=== PATIENT | female | born 1955 | race Caucasian/White ===

== ENCOUNTER → 2022-09-13 09:26 | Outpatient (BNVA) | payer MEDICARE, SELFPAY | PROVIDERS: PCP Preventive Medicine Occupational Medicine; Visit Provider Nurse Practitioner Family | DX: Z13.6 Encounter for screening for cardiovascular disorders (principal); F17.200 Nicotine dependence, unspecified, uncomplicated; Z13.29 Encounter for screening for other suspected endocrine disorder; Z12.11 Encounter for screening for malignant neoplasm of colon; Z12.39 Encounter for other screening for malignant neoplasm of breast; Z13.820 Encounter for screening for osteoporosis; Z23 Encounter for immunization; Z12.2 Encounter for screening for malignant neoplasm of respiratory organs; Z00.00 Encounter for general adult medical examination without abnormal findings | CPT/HCPCS: 80053; 80061; 84443; 85025 ==

== ENCOUNTER → 2022-09-23 09:32 | Outpatient (BNVA) | payer MEDICARE, SELFPAY | PROVIDERS: PCP Preventive Medicine Occupational Medicine; Visit Provider Surgery | DX: Z12.11 Encounter for screening for malignant neoplasm of colon (principal) | CPT/HCPCS: 99024 ==

== ENCOUNTER 2022-10-07 10:15 | Outpatient (CLI) | payer MEDICARE, SELFPAY ==
--- NOTE | 2022-10-07 14:30 | XR_ITS ---
WS: [id number] SCREENING DEXA SCAN [employer] CLINICAL INFORMATION: Z13.820 - Encounter for screening for osteoporosis COMPARISON: None. FINDINGS: The L1-L4 bone mineral density measures 1.042 g/cm2. This corresponds to a T score score of -1.2 and Z score of 0.0. Left femoral neck bone mineral density measures 0.924 g/cm2. This corresponds to a T score of -0.7 an d Z score of 0.3. Right femoral neck bone mineral density measures 0.872 g/cm2. This corresponds to a T score -1.1of an d Z score of -0.1. Mean femoral neck bone mineral density measures 0.898 g/cm2. This corresponds to a T score of -0.9 an d Z score of 0.1. XR/XR DEXA axial skeleton* [id number] IMPRESSION: Osteopenia lumbar spine. Normal bone mineralization femoral necks approaching o steopenia. Patient's FRAX calculated 10 year probability for major osteoporotic fracture i s 12.4 % and osteoporotic hip fracture is 3.5%.
== END 2022-10-07 10:16 | disposition home or self-care (01) ==
LOC: RAD 10:15
PROVIDERS: PCP Nurse Practitioner Family; Visit Provider Nurse Practitioner Family
DX: Z13.820 Encounter for screening for osteoporosis (principal)
CPT/HCPCS: 77080

== ENCOUNTER 2022-10-07 10:15 | Outpatient (CLI) | payer MEDICARE, SELFPAY ==
--- NOTE | 2022-10-07 11:02 | MM_ITS ---
WS: [id number] Bilateral screening 3D tomosynthesis digital mammogram, 10/07/2022 Clinical Data: SCREEN Comparison: None. Findings: The breast parenchymal pattern shows glandular tissue. No spiculated masses or clustered calcificatio ns are seen. There are no secondary signs of carcinoma. MM/[place] [id number] Impression: 1. Negative bilateral mammogram with no prior exam for review.. 2. Recommend annual screening mammograms. BIRADS: 1-Negative FOLLOW UP: 1 Year Follow-up The CAD apple checker was used.
== END 2022-10-07 10:16 | disposition home or self-care (01) ==
LOC: RAD 10:15
PROVIDERS: PCP Nurse Practitioner Family; Visit Provider Nurse Practitioner Family
DX: Z12.31 Encounter for screening mammogram for malignant neoplasm of breast (principal); Z13.820 Encounter for screening for osteoporosis
CPT/HCPCS: 77063; 77067; 77080

== ENCOUNTER 2022-10-20 12:38 | Outpatient (CLI) | payer MEDICARE, SELFPAY ==
--- NOTE | 2022-10-20 12:45 | CT_ITS ---
WS: [id number] LDCT LUNG CANCER SCREENING HISTORY: Lung screening. TECHNIQUE: Axial imaging performed from the apices to 1 cm below the costophrenic angles. Coronal and sagittal reformats are submitted with axial MIP series. All CT scans at [facility] use at least one of these dose optimization techniques: automated exposure control; mA and/or kV adjustment per patient size (includes targeted exams where dose is matched to clinical indication); or iterativ e reconstruction. DLP: 67.00 mGy.cm DIvol: Mean CTDIvol: 1.50 (mGy) COMPARISON: None available. Diagnostic quality: Satisfactory Lung Nodules: Solid nodule with central lucency measures 9 mm RIGHT lower lobe. Margins are very slig htly irregular. There is an additional 4 mm nodule at the LEFT lung base. No additional mass or pneum onia. Lungs: Chronic emphysema with hyperexpansion. Heart: Normal size heart. No pericardial effusion. Other findings: Mild atherosclerosis aorta. No mediastinal or hilar adenopathy. Mild mid thoracic spo ndylosis. CT/CT lung screening [id number] IMPRESSION: LUNG-RADS: 4A-Probably Suspicious FOLLOW UP: 3 Month LDCT OTHER FINDINGS (S MODIFIER): None. PET/CT imaging may be of value also to evaluate the 9 mm RIGHT lower lobe nodul e.
== END 2022-10-20 12:39 | disposition home or self-care (01) ==
LOC: RAD 12:40
PROVIDERS: PCP Nurse Practitioner Family; Visit Provider Nurse Practitioner Family
DX: Z12.2 Encounter for screening for malignant neoplasm of respiratory organs (principal)
CPT/HCPCS: 71271

== ENCOUNTER 2022-10-22 07:49 | Day surgery (SDC) | payer MEDICARE, SELFPAY ==
[2022-10-20 08:57] VITALS: BMI 28.6
[2022-10-22 08:06] VITALS: BP 163/101; PULSE 67; RESP 18; TEMP 36.1; O2SAT 94
[2022-10-22] MEDS: sodium chloride 0.9% 1,000 ML 30 ML IV (08:08)
--- NOTE | 2022-10-22 09:10 | ANES.PREANE2 ---
Pre-Anesthetic Assessment Height/Weight: Height 1.65 m Weight 78.018 kg Temp Pulse Resp BP Pulse Ox O2 Del Method 97 F L 67 18 163/101 94 10/22/22 08:06 10/22/22 08:06 10/22/22 08:06 10/22/22 08:06 10/22/22 08:06 10/22/22 08:06 Preop Diagnosis: screening Operation Date: 10/22/22 09:30 Proposed Procedures p Colonoscopy 98465,Z12.11(Not Applicable) - Blair Guerrero DO Familial anesthetic complications: none Was Beta Lacey taken within 24 hours: N/A Was Clonidine taken within 24 hours: N/A Last intake: Intake Last Liquid Date 10/21/22 Last Liquid Time 22:00 Last Solid Date 10/20/22 Last Solid Time 18:00 Last Intake: 22:00 Social Tobacco and No alcohol 1ppd pack(s) per day 60 pack years Exam alert, oriented x 3, clear to auscultation bilaterally and regular rate & rhythm Airway Submandibular: within normal limits Cervical ROM: within normal limits Mallampati: Class I Dentition: false Pulmonary Chronic Obstructive Pulmonary Disease and Cough CV/HEM None reported None reported Hepatic None reported GI None reported Metabolic None reported Musc/skel None reported Neuropsych None reported Anesthetic Plan ASA status: 2 Anesthesia: MAC Risk of > 500 ml blood loss (7ml/kg in children): No Medications/Allergies Home Medications Medication Instructions Recorded Confirmed Last Taken Type atorvastatin 10 mg tablet 10 mg PO DAILY #30 tabs 09/28/22 10/20/22 10/21/22 Rx hydrocortisone 2.5 % topical cream 1 applic IA QID 10 days #30 grams 10/22/22 Unknown Rx with perineal applicator (Proctosol HC) Allergies Allergy/AdvReac Type Severity Reaction Status Date / Time No Known Allergies Allergy Unverified 10/20/22 08:54 Current Medications Generic Name Dose Route Start Last Admin Trade Name Freq PRN Reason Stop Dose Admin Sodium Chloride 1,000 mls @ 30 mls/hr 10/22/22 08:15 10/22/22 08:08 Sodium Chloride 0.9% IV 10/23/22 08:14 30 mls/hr .Q24H GLEN Administration PFSH Anesthesia Medical History (Updated 10/22/22 @ 09:40 by Blair Guerrero DO) No pertinent past medical history Surgical History (Updated 10/22/22 @ 09:40 by Blair Guerrero DO) Hx of appendectomy Social History Smoking and tobacco status: current every day smoker Second hand smoke exposure: No Smoking risk assessment/counseling performed?: No Alcohol intake: never Desire information about alcohol rehabilitation?: No Counseling given: No Desire information about substance/drug rehabilitation?: No Counseling given: No Adopted: No Caregiver/support person: No Lives independently: Yes Household members: spouse Housing: House Marital status: Number of children: 4 Highest education level completed: GED or Equivalent service: No Current occupational status: retired Data Anesthesia Cardiac Studies: No Data to Display
--- NOTE | 2022-10-22 09:40 | PM.HP ---
Providers/Chief Complaint Primary Care Provider: ILDEFONSO Roland Chief Complaint: encounter for screening History of Present Illness Lola Matta is a 67 year old female here for her first screening colonoscopy. She denies any family history of colon cancer. Denies abdominal pain, nausea, emesis, diarrhea, constipation, medic easier and/or melena. Review of Systems General: Reports: 10 or more systems reviewed and unremarkable except in HPI and below Medications/Allergies Home Medications Medication Instructions Recorded Confirmed Last Taken Type atorvastatin 10 mg tablet 10 mg PO DAILY #30 tabs 09/28/22 10/20/22 10/21/22 Rx Allergies Allergy/AdvReac Type Severity Reaction Status Date / Time No Known Allergies Allergy Unverified 10/20/22 08:54 PFSH Acute PFSH: Medical History (Updated 10/22/22 @ 09:40 by Blair Guerrero DO) No pertinent past medical history Surgical History (Updated 10/22/22 @ 09:40 by Blair Guerrero DO) Hx of appendectomy Social History Smoking and tobacco status: current every day smoker Second hand smoke exposure: No Smoking risk assessment/counseling performed?: No Alcohol intake: never Desire information about alcohol rehabilitation?: No Counseling given: No Desire information about substance/drug rehabilitation?: No Counseling given: No Adopted: No Caregiver/support person: No Lives independently: Yes Household members: spouse Housing: House Marital status: Number of children: 4 Highest education level completed: GED or Equivalent service: No Current occupational status: retired Vitals/I&O/Wt Last Vital Signs Temp 97 F L 10/22/22 08:06 Pulse 67 10/22/22 08:06 Resp 18 10/22/22 08:06 BP 163/101 10/22/22 08:06 Pulse Ox 94 10/22/22 08:06 O2 Del Method 10/22/22 08:06 Physical Exam Narrative: General : Patient is well developed , no acute distress, oriented x3 Head : Normal cephalic, a-traumatic. Ears : Pinnae and external canal are normal. Hearing is normal. Eyes : PERRLA, Sclera and injection are normal. No conjunctival discharge. Nose : Mucous membranes are without erythema. Throat : buccal mucosa is normal, gums are without significant recession or hypertrophy. Lungs : Equal chest rise bilaterally, no use of accessory muscles, trachea is midline. Cor : Rate and rhythm are normal. Abdomen : Soft, ND, NT, no g/r/m Extremities : No edema, no cyanosis or clubbing, dorsalis pedis pulses are present bilaterally, non-tender to palpation of calves. Upper extremities are normal bilaterally. Back : non-tender to palpation, no CVA tenderness. Neuro : CN II - XII intact, Upper and lower extremities have equal and full strength A&P Assessment and plan (1) Colon cancer screening: Plan Colonoscopy The risks and benefits of the procedure, including bleeding, infection, intestinal perforation requiring surgery, missed lesion were explained to the patient. The patient is understanding of the risks and wishes to proceed. Attestations Medical Necessity Statement*: Home Coding Level of Care Code Acute Code for Chg Fwd Diagnoses Colon cancer screening Z12.11
[2022-10-22 10:24] VITALS: BP 164/80; PULSE 62; RESP 16; TEMP 36.1; O2SAT 99
[2022-10-22 10:35] VITALS: BP 159/108; PULSE 56; RESP 16; O2SAT 91
[2022-10-22 10:45] VITALS: BP 166/89; PULSE 57; RESP 16; O2SAT 100
--- NOTE | 2022-10-22 12:55 | ANE.PACU2 ---
Inpatient post-anesthesia follow up: Airway intact: Yes Vital signs: Temperature 97 F Pulse Rate 57 Respiratory Rate 16 Blood Pressure 166/89 Pulse Oximetry 100 Oxygen Delivery Me thod Room Air Oxygen Flow Rate 3 Fraction of Inspir ed Oxygen Hydration adequate: Yes Nausea and vomiting: No Pain level: 2 Mental status: Baseline
== END 2022-10-22 11:00 | disposition home or self-care (01) ==
PROVIDERS: PCP Nurse Practitioner Family; Visit Provider Surgery
PROC: 0DJD8ZZ Inspection of Lower Intestinal Tract, Via Natural or Artificial Opening Endoscopic (ICD-10-PCS; CPT 45378; principal; 2022-10-22 09:30)
DX: Z12.11 Encounter for screening for malignant neoplasm of colon (principal); F17.210 Nicotine dependence, cigarettes, uncomplicated; K64.8 Other hemorrhoids; D12.6 Benign neoplasm of colon, unspecified; J44.9 Chronic obstructive pulmonary disease, unspecified
CPT/HCPCS: 45385; 88305; J2704; J7030

== ENCOUNTER → 2022-11-10 16:23 | Outpatient (BNVA) | payer MEDICARE, SELFPAY | PROVIDERS: PCP Nurse Practitioner Family; Visit Provider Surgery | DX: Z09 Encounter for follow-up examination after completed treatment for conditions other than malignant neoplasm (principal); D12.6 Benign neoplasm of colon, unspecified | CPT/HCPCS: 99212 ==

== ENCOUNTER 2022-11-13 07:40 | Outpatient (CLI) | payer MEDICARE, SELFPAY ==
--- NOTE | 2022-11-13 | PETR_ITS ---
PROCEDURE INFORMATION: Exam: PET/CT Skull Base to Mid-thigh Exam date and time: 11/13/2022 8:55 AM Age: 67 years old Clinical indication: Abnormal findings of lung field LABS AND CLINICAL REPORTS: Glucose: 106 mg/dl Treatment strategy for malignancy (PET staging): Initial Staging (PI) TECHNIQUE: Imaging protocol: Following at least four-hour fasting and following the injection of F-18-FDG, low dose CT images were obtained. Then, PET images were obtained. Attenuation corrected images were constructed using the CT scan. Fused images of PET and CT were reviewed. The standardized uptake values (SUV) reported below are maximum values within a region of interest, expressed in gm/ml. Exam includes orbital meatal line to mid-thigh. Radiopharmaceutical: 11.22 mCi F-18 FDG (Fluorodeoxyglucose), IV. Time of imaging post radiopharmaceutical administration: 1 hour Injection site: Left antecubital COMPARISON: CT lung screening [id number] 10/20/2022 1:03 PM, CT head and CT cervical spine 03/02/2015 FINDINGS: Brain: Visualized brain has normal physiologic uptake. Pharynx: There is mild asymmetric left palatine tonsillar uptake without evidence of a discrete lesion, SUV max 4.6. Larynx: No abnormal uptake. Lungs, pleura and trachea: No abnormal uptake. A calcified granuloma in the medial right lower lobe on series 3, image 72 is present.Mild dependent streaky density in the lungs is consistent with atelectasis. A solid noncalcified right lower lobe nodule measuring 9-10 mm on series 3, image 57 is not radiotracer avid, SUV max 1.5. A non radiotracer avid noncalcified 4 mm posterior left lower lobe nodule on series 3, image 68 is present. No definite additional pulmonary nodules. Assessment of the lungs is somewhat limited by respiratory motion artifact. Heart: Normal physiologic uptake. Mediastinal space: No abnormal uptake. Liver: No abnormal uptake. Gallbladder and bile ducts: No abnormal uptake. Pancreas: No abnormal uptake. Spleen: No abnormal uptake. Adrenal glands: No abnormal uptake. Kidneys and ureters: Normal physiologic uptake. Stomach and bowel: There is physiologic appearing uptake in the region of the ileocecal valve. Uptake in the terminal ileum demonstrates an SUV max 4.9, likely physiologic. Vasculature: No abnormal uptake. There are diffuse atherosclerotic changes. An infrarenal abdominal aortic aneurysm measures 5.8 x 5.6 cm on series 3, image 102. Lymph nodes: A mildly prominent right paratracheal/ aortopulmonary window lymph node measuring 1.8 x 1.2 cm on series 3, image 47 demonstrates an SUV max 2.9. Bones/joints: No abnormal uptake in the visualized axial and appendicular skeleton. There is mild diffuse vertebral body spondylosis. Soft tissues: No abnormal uptake in the visualized head, neck, chest, abdomen, pelvis, and extremities. METRICS: Mediastinal blood pool: SUV max 2.3 PET/PET [facility] INITIAL [id number] IMPRESSION: 1. Previously noted bilateral lower lobe pulmonary nodules do not demonstrate elevated uptake. While this lack of uptake favors a benign etiology, assessment of small nodules can be limited by PET-CT. 2. Infrarenal abdominal aortic aneurysm measuring 5.8 x 5.6 cm. 3. There is a single mildly prominent mediastinal lymph node with low-level uptake (SUV max 2.9) favoring a benign rather than neoplastic etiology. 4. Asymmetric uptake in the left palatine tonsil is likely inflammatory or infectious in etiology. 5. Additional nonurgent findings as detailed above.
== END 2022-11-13 07:41 | disposition home or self-care (01) ==
LOC: RAD 07:56
PROVIDERS: PCP Nurse Practitioner Family; Visit Provider Nurse Practitioner Family
DX: R91.8 Other nonspecific abnormal finding of lung field (principal)
CPT/HCPCS: 78815; A9552

== ENCOUNTER → 2022-12-07 14:46 | Outpatient (BNVA) | payer MEDICARE, SELFPAY | PROVIDERS: PCP Nurse Practitioner Family; Visit Provider Internal Medicine Pulmonary Disease | DX: R91.1 Solitary pulmonary nodule (principal); R06.09 Other forms of dyspnea; J43.9 Emphysema, unspecified; F17.210 Nicotine dependence, cigarettes, uncomplicated | CPT/HCPCS: 99204 ==

== ENCOUNTER 2023-01-04 07:50 | Outpatient (CLI) | payer MEDICARE, SELFPAY | END 2023-01-04 07:51 | disposition home or self-care (01) | PROVIDERS: PCP Nurse Practitioner Family; Visit Provider Internal Medicine Pulmonary Disease | DX: R91.1 Solitary pulmonary nodule (principal); R06.09 Other forms of dyspnea | CPT/HCPCS: 94010; 94618; 94726; 94729 ==

== ENCOUNTER 2023-01-14 14:34 | Outpatient (CLI) | payer MEDICARE, SELFPAY ==
--- NOTE | 2023-01-14 15:00 | CT_ITS ---
WS: [id number] CT chest wo con [id number] HISTORY: Abnormal lung findings. TECHNIQUE: Axial imaging performed through the thorax. Coronal and sagittal reformats are submitted. All CT scans at [facility] use at least one of these dose optimization techniques: automated exposure control; mA and/or kV adjustment per patient size (includes targeted exams where dose is mat ched to clinical indication); or iterative reconstruction. CONTRAST: None DLP: 353.64 mGy.cm COMPARISON: 10/20/2022 lung screening and PET/CT 11/13/2022 Lungs and central airway: Hyperinflated lungs. Nodule with central cavitation measures 9 mm RIGHT low er lobe. No increase in size and noted to be FDG negative. There is an additional 4 mm nodule posteri or LEFT lower lobe which is also stable. Benign granuloma LEFT upper lobe. No new mass or nodule. No pneumonia. Pleura: Normal. No pleural effusion. Heart and pericardium: Normal size heart with no pericardial effusion. Mediastinum and maximo: There are small lymph nodes. Lymph node that was mildly positive on recent PET/ CT is not well identified without IV contrast. No obvious enlargement of lymph nodes. Vessels: Mild atherosclerosis aorta. No aneurysm. Normal size pulmonary artery. Chest wall and lower neck: No soft tissue masses. Upper abdomen: Infrarenal abdominal aortic aneurysm is partially visualized measuring 6.0 x 5.8 cm. A neurysm was described on prior PET/CT. No obvious increase in size. Normal adrenal glands. Osseous structures: Increase in thoracic kyphosis. Central mild spondylitic disease. CT/CT chest wo con [id number] IMPRESSION: 1. No increase in size or progression of the bilateral lower lobe pulmonary no dules since 10/20/2022. 2. No adenopathy identified. 3. Partially visualized abdominal aortic aneurysm measures 6.0 x 5.8 cm. Previ ously described by PET/CT imaging.
== END 2023-01-14 14:35 | disposition home or self-care (01) ==
LOC: RAD 14:39
PROVIDERS: PCP Nurse Practitioner Family; Visit Provider Nurse Practitioner Family
DX: R91.8 Other nonspecific abnormal finding of lung field (principal); I71.40 Abdominal aortic aneurysm, without rupture, unspecified
CPT/HCPCS: 71250

== ENCOUNTER → 2023-03-28 09:02 | Outpatient (BNVA) | payer MEDICARE, SELFPAY | PROVIDERS: PCP Nurse Practitioner Family; Visit Provider Nurse Practitioner Family | DX: M85.80 Other specified disorders of bone density and structure, unspecified site (principal); Z13.6 Encounter for screening for cardiovascular disorders | CPT/HCPCS: 80053; 80061; 85025 ==

== ENCOUNTER → 2023-09-12 08:19 | Outpatient (BNVA) | payer MEDICARE, SELFPAY | PROVIDERS: PCP Nurse Practitioner Family; Visit Provider Nurse Practitioner Family | DX: Z13.6 Encounter for screening for cardiovascular disorders (principal); J43.9 Emphysema, unspecified | CPT/HCPCS: 80053; 80061; 85025 ==

== ENCOUNTER → 2023-10-04 08:55 | Outpatient (BNVA) | payer MEDICARE, SELFPAY | PROVIDERS: PCP Nurse Practitioner Family; Referring Provider Nurse Practitioner Family; Visit Provider Surgery | DX: Z12.11 Encounter for screening for malignant neoplasm of colon (principal) | CPT/HCPCS: 99024; 99213 ==

== ENCOUNTER 2023-10-26 09:06 | Day surgery (SDC) | payer MEDICARE, SELFPAY ==
[2023-10-26 09:23] VITALS: BP 166/107; PULSE 78; RESP 16; TEMP 36.4; O2SAT 92
[2023-10-26] MEDS: sodium chloride 0.9% 1,000 ML 30 ML IV (09:30)
[2023-10-26 09:32] VITALS: BMI 28.2
--- NOTE | 2023-10-26 09:38 | W.PM.OPSUD ---
Surgery/Procedure H&P Update DATE OF PROCEDURE: October 26, 2023 DATE H&P PERFORMED: 10/05/23 H&P UPDATE INFORMATION: I have reviewed H&P completed within last 30 days, I have examined patient prior to procedure and No changes to prior documentation PLANNED PROCEDURE: Operation Date: 10/26/23 07:45 [place] [id number] colonoscopy G0121 screen colon a risk z12.11(Not Applicable) - Blair Guerrero, DO
--- NOTE | 2023-10-26 09:39 | ANES.PREANE2 ---
Pre-Anesthetic Assessment Height/Weight: Height 1.68 m Weight 79.379 kg Temp Pulse Resp BP Pulse Ox O2 Del Method 97.6 F 78 16 166/107 92 Room Air 10/26/23 09:23 10/26/23 09:23 10/26/23 09:23 10/26/23 09:23 10/26/23 09:23 10/26/23 09:23 Operation Date: 10/26/23 07:45 Proposed Procedures p [id number] colonoscopy G0121 screen colon a risk z12.11(Not Applicable) - Blair Guerrero DO Last intake: Intake Last Liquid Date 10/25/23 Last Liquid Time 20:00 Last Solid Date 10/24/23 Last Solid Time 17:00 Social Tobacco and No alcohol Exam alert, oriented x 3 and regular rate & rhythm Airway Submandibular: within normal limits Cervical ROM: within normal limits Mallampati: Class I Dentition: false History/ROS No significant history except as noted and No significant complaints Pulmonary Chronic Obstructive Pulmonary Disease and Cough CV/HEM Coronary Artery Disease and Hypertension Abdominal aortic aneurysm repaired with stents March. Instructed to keep her SBP less than 140. None reported Hepatic None reported GI None reported Metabolic Hyperlipidemia Neuropsych Anxiety Anesthetic Plan ASA status: 3 Anesthesia: MAC Risk of > 500 ml blood loss (7ml/kg in children): No Medications/Allergies Home Medications Medication Instructions Recorded Confirmed Last Taken Type calcium citrate 315 mg 2 tab PO BID #120 tabs 03/29/23 10/26/23 10/25/23 Rx calcium-vitamin D3 6.25 mcg (250 unit) tablet (Citracal + Vitamin D Maximum) umeclidinium 62.5 mcg/actuation 1 inh inhalation DAILY #30 ea 06/13/23 10/26/23 10/26/23 Rx blister powder for inhalation (Incruse Ellipta) aspirin 81 mg tablet,delayed 81 mg PO DAILY 09/13/23 10/26/23 10/25/23 History release (Adult Low Dose Aspirin) atorvastatin 10 mg tablet 10 mg PO DAILY #30 tabs 09/13/23 10/26/23 10/25/23 Rx lisinopril 10 mg tablet 10 mg PO DAILY #30 tabs 09/13/23 10/26/23 10/25/23 Rx albuterol sulfate 90 mcg/actuation 1 inh inhalation QID PRN shortness 10/05/23 10/26/23 10/25/23 Rx aerosol inhaler (Ventolin HFA) of breath or wheezing #8.5 grams Allergies Allergy/AdvReac Type Severity Reaction Status Date / Time No Known Allergies Allergy Verified 10/05/23 10:28 Current Medications Generic Name Dose Route Start Last Admin Trade Name Monoq PRN Reason Stop Dose Admin Sodium Chloride 1,000 mls @ 30 mls/hr 10/26/23 09:15 10/26/23 09:30 Sodium Chloride 0.9% IV 10/27/23 09:14 30 mls/hr .Q24H GLEN Administration PFSH Anesthesia Medical History Tubular adenoma of colon No pertinent past medical history Surgical History Hx of colonoscopy 10/2022 Hx of appendectomy Social History Smoking and tobacco/nicotine status: current every day tobacco/nicotine user cigarettes Packs smoked per day: 1 Years cigarettes smoked: 57 [ Other cigarette details: started age 10] Second hand smoke exposure: No Alcohol intake: never Substance/Drug Use: never Adopted: No Caregiver/support person: No Lives independently: Yes Household members: spouse Housing: House Marital status: Number of children: 4 Highest education level completed: GED or Equivalent service: No Current occupational status: retired Data Anesthesia Cardiac Studies: No Data to Display
[2023-10-26 10:38] VITALS: BP 101/54; PULSE 16; RESP 16; TEMP 36.2; O2SAT 97
[2023-10-26 10:55] VITALS: BP 108/70; PULSE 64; RESP 18; O2SAT 92
--- NOTE | 2023-10-26 14:13 | ANE.PACU2 ---
Inpatient post-anesthesia follow up: Airway intact: Yes Vital signs: Temperature 97.1 F Pulse Rate 64 Respiratory Rate 18 Blood Pressure 108/70 Pulse Oximetry 92 Oxygen Delivery Me thod Room Air Oxygen Flow Rate Fraction of Inspir ed Oxygen Hydration adequate: Yes Nausea and vomiting: No Pain level: 2 Mental status: Baseline
== END 2023-10-26 11:25 | disposition home or self-care (01) ==
PROVIDERS: PCP Nurse Practitioner Family; Visit Provider Surgery
PROC: 0DJD8ZZ Inspection of Lower Intestinal Tract, Via Natural or Artificial Opening Endoscopic (ICD-10-PCS; CPT 45378; principal; 2023-10-26 07:45)
DX: Z12.11 Encounter for screening for malignant neoplasm of colon (principal); D12.4 Benign neoplasm of descending colon; D12.3 Benign neoplasm of transverse colon; J44.9 Chronic obstructive pulmonary disease, unspecified; I25.10 Atherosclerotic heart disease of native coronary artery without angina pectoris; I10 Essential (primary) hypertension; Z95.5 Presence of coronary angioplasty implant and graft; E78.5 Hyperlipidemia, unspecified; F41.9 Anxiety disorder, unspecified; F17.210 Nicotine dependence, cigarettes, uncomplicated
CPT/HCPCS: 45385; 45388; 88305; J2704; J3490; J7030

== ENCOUNTER 2023-11-07 11:25 | Emergency (ER) | payer MEDICARE, SELFPAY ==
[2023-11-07 12:04] VITALS: BP 144/85; PULSE 79; RESP 18; TEMP 36.7; O2SAT 94; BMI 28.4
--- NOTE | 2023-11-07 12:16 | CTR_ITS ---
PROCEDURE INFORMATION: Exam: CT Abdomen And Pelvis Without Contrast Exam date and time: 11/07/2023 12:20 PM Age: 68 years old Clinical indication: Abdominal tenderness and other: Blood in stool, S/P colonoscopy 2 weeks ago; Prior surgery; Surgery date: 6+ months; Surgery type: Appy; Additional info: Abdominal pain TECHNIQUE: Imaging protocol: Computed tomography of the abdomen and pelvis without contrast. Radiation optimization: All CT scans at this facility use at least one of these dose optimization techniques: automated exposure control; mA and/or kV adjustment per patient size (includes targeted exams where dose is matched to clinical indication); or iterative reconstruction. COMPARISON: CT chest wo con [id number] 01/14/2023 3:01 PM RADIATION DOSE METRICS: Total DLP (mGy-cm): 709.16 FINDINGS: Lungs: Calcified granuloma right lower lobe. Liver: Normal. No mass. Gallbladder and bile ducts: 1.6 cm stone in the gallbladder. No gallbladder wall thickening or pericholecystic fluid. No intra or extrahepatic biliary ductal dilatation. Pancreas: Normal. No ductal dilation. Spleen: Normal. No splenomegaly. Adrenal glands: Normal. No mass. Kidneys and ureters: Normal. No hydronephrosis. Stomach and bowel: Unremarkable. No obstruction. No mucosal thickening. Appendix: No evidence of appendicitis. Intraperitoneal space: Unremarkable. No free air. No significant fluid collection. Vasculature: Aortoiliac stent graft, new since the prior CT. Lymph nodes: Unremarkable. No enlarged lymph nodes. Urinary bladder: Unremarkable as visualized. Reproductive: Unremarkable as visualized. Bones/joints: Degenerative changes in the lumbar spine. Most prominently there is likely substantial left-sided neural foraminal narrowing at L5-S1 related to left lateral protrusion, osteophyte and facet hypertrophy. Soft tissues: Unremarkable. CT/CT abdomen pelvis wo con [id number] IMPRESSION: 1. No acute intra-abdominal abnormality. 2. 1.6 cm stone in the gallbladder. No gallbladder wall thickening or pericholecystic fluid. 3. Degenerative changes in the lumbar spine. Most prominently there is likely substantial left-sided neural foraminal narrowing at L5-S1 related to left lateral protrusion, osteophyte and facet hypertrophy. 4. Aortoiliac stent graft, new since the prior CT.
[2023-11-07 12:46] VITALS: BP 173/110; PULSE 88; RESP 18; O2SAT 92
--- NOTE | 2023-11-07 13:13 | ED_ITS ---
HPI - GI Bleed 2 General: Chief complaint: GI Bleed Stated complaint: post op trouble Time Seen by Provider: 11/07/23 12:15 Source: patient Mode of arrival: ambulatory History of Present Illness: Six 8-year-old female presents emergency room with complaint of a single large bloody bowel movement this morning. About 2 weeks ago patient had a colonoscopy that was reported to her as relatively normal she did have some biopsies done. She has no significant abdominal pain. She is not on any anticoagulants she is taking a baby aspirin daily. No other symptoms. MD complaint: gross hematochezia Onset (ago): minute(s) Pain Consistency: intermittent Severity: moderate Relieving factors: none Exacerbating factors: none Associated symptoms: Denies abdominal pain, chills, easy bruising, epistaxis, fever(s), headache(s), malaise, nausea, other bleeding, poor appetite, rash, syncope, vomiting or weakness Treatments Prior to Arrival: none Review of Systems 2 Const: Denies: fever(s), chills or malaise ENMT: Denies: epistaxis Card: Denies: syncope Resp: Denies: dyspnea GI: Denies: abdominal pain, nausea or vomiting : Denies: dysuria, urinary frequency or urinary urgency Musc: Denies: neck pain or back pain Skin/Breast: Denies: rash Neuro: Denies: headache(s) Refugio/Lymph: Denies: easy bruising PFSH ED 2 PFSH: Medical History Tubular adenoma of colon No pertinent past medical history Surgical History Hx of colonoscopy 10/2022 Hx of appendectomy Social History Smoking and tobacco/nicotine status: current every day tobacco/nicotine user cigarettes Packs smoked per day: 1 Years cigarettes smoked: 57 [ Other cigarette details: started age 10] Second hand smoke exposure: No Alcohol intake: never Substance/Drug Use: never Adopted: No Caregiver/support person: No Lives independently: Yes Household members: spouse Housing: House Marital status: Number of children: 4 Highest education level completed: GED or Equivalent service: No Current occupational status: retired Physical Exam 2 Const: COMMON NORMALS: no acute distress GENERAL APPEARANCE: cooperative and comfortable ORIENTATION/CONSCIOUSNESS: Yes awake, Yes oriented to person, Yes oriented to place and Yes oriented to time HENMT: COMMON NORMALS: normocephalic, atraumatic and hearing grossly normal bilaterally HEAD & SCALP: normocephalic and atraumatic Resp: COMMON NORMALS: normal respiratory effort, No retractions, No use of accessory muscles and clear to auscultation bilaterally AUSCULTATION: clear to auscultation bilaterally Cardio: COMMON NORMALS: regular rate, regular rhythm and No murmurs present (Cardio) RATE: regular rate RHYTHM: regular rhythm GI: COMMON NORMALS: Soft to palpation and No hepatosplenomegaly present A USCULTATION: Yes normoactive bowel sounds PALPATION: Yes Soft to palpation, No Tenderness to palpation present (GI), No Guarding due to palpation present (GI) and Yes No hepatosplenomegaly present Extremity: COMMON NORMALS: normal to inspection, capillary refill normal, no clubbing, cyanosis or edema, no calf tenderness and no pedal edema Neuro: SENSORIUM/ORIENTATION: Yes oriented to person, Yes oriented to place and Yes oriented to time Skin: COMMON NORMALS: no rashes or lesions noted GENERAL SKIN EXAM: no rashes or lesions noted Course 2 Vital Signs: Vital signs: Vital Signs Temperature 98.0 F 11/07/23 12:04 Pulse Rate 87 11/07/23 13:22 Respiratory Rate 16 11/07/23 13:22 Blood Pressure 173/110 11/07/23 12:46 Pulse Oximetry 92 11/07/23 13:22 Oxygen Delivery Me thod Room Air 11/07/23 13:22 MDM - GI Bleed Medical Decision Making Painless rectal bleeding. Reviewed colonoscopy showed tubular adenomas. Discussed with Dr. Guerrero hemoglobin stable at this time she not had any further rectal bleeding will discharge patient home on Augmentin 875 twice daily she has an appointment on November 10 she should keep that appointment hold her aspirin. Return if she has recurrent bloody bowel movements. On the recent colonoscopy she had 3 tubular adenomas with recommendation for repeat colonoscopy in 6 months. Medical Records I reviewed the patient's medical records. Lab Data I reviewed the patient's lab results. 11/07/23 13:20 11/07/23 12:48 Radiology Impressions Abdomen/Pelvis CT 11/07/23 12:16 IMPRESSION: 1. No acute intra-abdominal abnormality. 2. 1.6 cm stone in the gallbladder. No gallbladder wall thickening or pericholecystic fluid. 3. Degenerative changes in the lumbar spine. Most prominently there is likely substantial left-sided neural foraminal narrowing at L5-S1 related to left lateral protrusion, osteophyte and facet hypertrophy. 4. Aortoiliac stent graft, new since the prior CT. Laboratory Results WBC 6.41 10^3/uL (3.29-11.43) 11/07/23 13:20 Corrected WBC Cancelled 11/07/23 12:48 RBC 5.12 10^6/uL (3.85-5.65) 11/07/23 13:20 Hgb 16.00 g/dL (11.27-16.99) 11/07/23 13:20 Hct 48.4 % (36-47) H 11/07/23 13:20 MCV 94.5 fl (85-98) 11/07/23 13:20 MCH 31.3 pg (27-33) 11/07/23 13:20 MCHC 33.1 g/dL (30-55) 11/07/23 13:20 RDW 12.3 % (12.1-15.1) 11/07/23 13:20 Plt Count 171 10^3/cmm (157-399) 11/07/23 13:20 MPV 11.8 fL (7.4-10.4) H 11/07/23 13:20 Gran % Cancelled 11/07/23 12:48 Neut % (Auto) 62.7 % 11/07/23 13:20 Lymph % (Auto) 25.1 % 11/07/23 13:20 [place] % (Auto) 9.2 % 11/07/23 13:20 Eos % (Auto) 2.2 % 11/07/23 13:20 Baso % (Auto) 0.5 % 11/07/23 13:20 Neut # (Auto) 4.02 10^3/uL (1.8-7.7) 11/07/23 13:20 Lymph # (Auto) 1.6 10^3/uL (0.8-4.8) 11/07/23 13:20 [place] # (Auto) 0.6 10^3/uL (0.2-0.9) 11/07/23 13:20 Eos # (Auto) 0.1 10^3/uL (0.0-0.8) 11/07/23 13:20 Baso # (Auto) 0.0 10^3/uL (0.0-0.1) 11/07/23 13:20 Absolute Gran (auto) Cancelled 11/07/23 12:48 Nucleated RBC % (auto) 0 % 11/07/23 13:20 Nucleated RBCs # 0.0 /100WBC 11/07/23 13:20 Sodium 142 mmol/L (136-145) 11/07/23 12:48 Potassium 4.6 mmol/L (3.5-5.1) 11/07/23 12:48 Chloride 104 mmol/L (98-107) 11/07/23 12:48 Carbon Dioxide 25 mmol/L (22-29) 11/07/23 12:48 Anion Gap 17.6 (5-19) 11/07/23 12:48 BUN 17 mg/dL (8-23) 11/07/23 12:48 Creatinine 0.8 mg/dL (0.5-0.9) 11/07/23 12:48 GFR Calculation 71.5 mL/min (90-130) L 11/07/23 12:48 Glucose 100 mg/dL (65-115) 11/07/23 12:48 Calculated Osmolality 296 mOsm/kg (285-295) H 11/07/23 12:48 Lactic Acid 1.7 mmol/L (0.5-2.2) 11/07/23 12:48 Calcium 11.1 mg/dL (8.5-10.5) H 11/07/23 12:48 Total Bilirubin 0.3 mg/dL (0.15-1.2) 11/07/23 12:48 AST 19 U/L (0-32) 11/07/23 12:48 ALT 12 U/L (0-33) 11/07/23 12:48 Alkaline Phosphatase 57 U/L (35-105) 11/07/23 12:48 Total Protein 7.0 g/dL (6.6-8.7) 11/07/23 12:48 Albumin 4.4 g/dL (3.5-5.2) 11/07/23 12:48 Globulin 2.6 g/dL (1.3-4.6) 11/07/23 12:48 Urine Color Yellow (Yellow) 11/07/23 13:01 Urine Appearance Clear (CLEAR) 11/07/23 13:01 Urine pH 5 (5-7) 11/07/23 13:01 Ur Specific [place] 1.020 (1.005-1.030) 11/07/23 13:01 Urine Protein Neg (Negative) 11/07/23 13:01 Urine Glucose (UA) Norm (Normal) 11/07/23 13:01 Urine Ketones Negative (Negative) 11/07/23 13:01 Urine Blood Neg (Negative) 11/07/23 13:01 Urine Nitrate Negative (Negative) 11/07/23 13:01 Urine Bilirubin Neg (Negative) 11/07/23 13:01 Urine Urobilinogen Norm mg/dL (Negative) 11/07/23 13:01 Ur Leukocyte Esterase 1+ (Negative) H 11/07/23 13:01 Urine RBC 0-4 /hpf (0-2) H 11/07/23 13:01 Urine WBC 5-10 /hpf (0-5) H 11/07/23 13:01 Ur Squamous Epith Cells 10-15 /hpf (0-5) H 11/07/23 13:01 Amorphous Sediment Not Reportable 11/07/23 13:01 Urine Bacteria 2+ /hpf (NONE) H 11/07/23 13:01 All radiology interpretation(s) finalized by discharge Discharge Plan Discharge Patient Disposition: Home Clinical Impression: Hematochezia, Tubular adenoma of colon Condition: Stable Prescriptions: New amoxicillin-pot clavulanate 875-125 mg tablet 1 tab PO BID Qty: 14 0RF No Action albuterol sulfate [Ventolin HFA] 90 mcg/actuation HFA aerosol inhaler 1 inh inhalation QID PRN (Reason: shortness of breath or wheezing) Qty: 8.5 3RF aspirin [Adult Low Dose Aspirin] 81 mg tablet,delayed release (DR/EC) 81 mg PO QAM calcium citrate-vitamin D3 [Citracal + D Maximum] 315 mg-6.25 mcg (250 unit) tablet 2 tab PO BID Qty: 120 5RF Incruse Ellipta 62.5 mcg/actuation blister with device 1 inh inhalation DAILY Qty: 30 6RF atorvastatin 10 mg tablet 10 mg PO QAM lisinopril 10 mg tablet 10 mg PO QAM Discharge Orders: Discharge ED (Routine); Ordered 11/07/23 Ordered By: Ismael Dasilva Referrals: Mansi Reese FNP-C [Primary Care Provider] - Discharge Diet: Full LIquid Discharge Activity: Increase activity as tolerated Patient Instructions: Opioid Safety, Pain Management Activity Restrictions/Additional Instructions: Thank you for choosing [facility] for your healthcare needs today. Please realize this is an emergency room and that we are providing you with a medical screening exam and this may not be complete and all inclusive of all the testing and or work up that you may need to determine your ailment or severity of your illness. It is very important that you follow up as instructed or that you return to the Emergency Department should you have concerns or if your condition changes or worsens in any way. You are seen today for rectal bleeding. Your hemoglobin is stable. CT did not show any acute abnormalities. Suspect this may be from diverticuli that are bleeding. Reviewed with Dr. Guerrero who did the recent colonoscopy. We recommend that you start Augmentin twice daily until you have your follow-up appointment with him he will make further recommendations then. You have an appointment on November 10 at 9:15 in the morning. If you have worsening episodes of rectal bleeding return to the emergency room. We do recommend that you hold your aspirin until advised by Dr. Guerrero that you may resume Coding Level of Care Code ED Supervisor Matrix for Angélica Hong
[2023-11-07 13:16] LABS: Lactic Sepsis W/Reflex 1.7 mmol/L (0.5-2.2)
[2023-11-07 13:17] LABS: Alanine Aminotransferase 12 U/L (0-33); Albumin Level 4.4 g/dL (3.5-5.2); Alkaline Phosphatase 57 U/L (35-105); Anion Gap 17.6 (5-19); Aspartate Amino Transferase 19 U/L (0-32); Blood Urea Nitrogen 17 mg/dL (8-23); Calcium 11.1 mg/dL (8.5-10.5); Carbon Dioxide 25 mmol/L (22-29); Chloride 104 mmol/L (98-107); Globulin 2.6 g/dL (1.3-4.6); Glomerular Filtration Rate 71.5 mL/min (90-130); Glucose 100 mg/dL (65-115); Osmolality Calculated 296 mOsm/kg (285-295); Potassium 4.6 mmol/L (3.5-5.1); Sodium 142 mmol/L (136-145); Total Bilirubin 0.3 mg/dL (0.15-1.2)
[2023-11-07 13:22] VITALS: PULSE 87; RESP 16; O2SAT 92
[2023-11-07 13:29] LABS: Basophils % 0.5 %; Eosinophils # 0.1 10^3/uL (0.0-0.8); Eosinophils % 2.2 %; Hematocrit 48.4 % (36-47); Lymphocytes # 1.6 10^3/uL (0.8-4.8); Lymphocytes % 25.1 %; Mean Corpuscular HGB Conc 33.1 g/dL (30-55); Mean Corpuscular Hemoglobin 31.3 pg (27-33); Mean Corpuscular Volume 94.5 fl (85-98); Mean Platelet Volume 11.8 fL (7.4-10.4); Monocytes # 0.6 10^3/uL (0.2-0.9); Monocytes % 9.2 %; Neutrophils # 4.02 10^3/uL (1.8-7.7); Neutrophils % 62.7 %; Nucleated Red Blood Cells % 0 %; Platelet Count 171 10^3/cmm (157-399); Red Blood Count 5.12 10^6/uL (3.85-5.65); Red Cell Distribution Width 12.3 % (12.1-15.1); White Blood Count 6.41 10^3/uL (3.29-11.43)
[2023-11-07 13:55] LABS: Add Urine Culture? No; Add Urine Microscopic? YES; Bacteria Urine 2+ /hpf; Bilirubin Urine Neg (Negative); Blood Urine Neg (Negative); Glucose Urine UA Norm (Normal); Ketones Urine Negative (Negative); Leukocyte Esterase Urine 1+ (Negative); Nitrate Urine Negative (Negative); Protein Urine Neg (Negative); RBC Urine 0-4 /hpf (0-2); Urine Appearance Clear (CLEAR); Urine Color Yellow (Yellow); Urobilinogen Urine Norm (Negative); pH Urine 5 (5-7)
[2023-11-07 14:30] VITALS: BP 110/73; PULSE 79; RESP 18; O2SAT 93
== END 2023-11-07 14:30 | disposition home or self-care (01) ==
PROVIDERS: Emergency Provider Family Medicine; PCP Nurse Practitioner Family
DX: K92.1 Melena (principal); D12.6 Benign neoplasm of colon, unspecified; Z79.82 Long term (current) use of aspirin; F17.210 Nicotine dependence, cigarettes, uncomplicated
CPT/HCPCS: 36415; 74176; 80053; 81001; 83605; 85025; 87040; 99284

== ENCOUNTER → 2023-11-10 08:58 | Outpatient (BNVA) | payer MEDICARE, SELFPAY | PROVIDERS: PCP Nurse Practitioner Family; Visit Provider Surgery | DX: Z09 Encounter for follow-up examination after completed treatment for conditions other than malignant neoplasm (principal); D12.6 Benign neoplasm of colon, unspecified; K92.1 Melena | CPT/HCPCS: 99214 ==

== ENCOUNTER 2023-11-15 09:21 | Outpatient (CLI) | payer MEDICARE, SELFPAY ==
--- NOTE | 2023-11-15 09:30 | MM_ITS ---
WS: [id number] BILATERAL 3D TOMOSYNTHESIS DIGITAL SCREENING MAMMOGRAPHY WITH CAD CLINICAL INFORMATION: Z12.39 - Encounter for other screening for malignant neop... HISTORY: Screening mammogram. No current complaints. COMPARISON: 10/07/2022 TECHNIQUE: Bilateral CC and MLO views. FINDINGS: Scattered fibroglandular densities bilaterally. Slightly spiculated asymmetric density outer LEFT breast measuring 9 mm best seen on the cc view. Rec ommend LEFT breast diagnostic mammography and ultrasound if persistent. RIGHT breast is unchanged and unremarkable. IMPRESSION: MM/[place] [id number] BI-RADS: 0-Incomplete: Need additional imaging evaluation FOLLOW UP: Need Additional Imaging Recommend LEFT breast diagnostic mammography and ultrasound if persistent.
== END 2023-11-15 09:22 | disposition home or self-care (01) ==
LOC: MOBLMAM 09:26
PROVIDERS: PCP Nurse Practitioner Family; Visit Provider Nurse Practitioner Family
DX: Z12.31 Encounter for screening mammogram for malignant neoplasm of breast (principal); R92.323 Mammographic fibroglandular density, bilateral breasts; N64.89 Other specified disorders of breast
CPT/HCPCS: 77063; 77067

== ENCOUNTER 2023-12-01 14:11 | Outpatient (CLI) | payer MEDICARE, SELFPAY ==
--- NOTE | 2023-12-01 14:30 | MM_ITS ---
WS: [id number] LEFT 3D TOMOSYNTHESIS DIGITAL MAMMOGRAPHY WITH CAD CLINICAL INFORMATION: R92.8 - Other abnormal and inconclusive findings on diagn... HISTORY: Additional views COMPARISON: 11/15/2023 TECHNIQUE: 3 views of the left breast were obtained. FINDINGS: Scattered fibroglandular densities of the left breast. Previously described 9 mm asymmetric density c ompresses out on the spot compression views today. No residual suspicious abnormalities. Recommend re turn to annual screen mammography. IMPRESSION: MM/[place] [id number] BI-RADS: 2-Benign FOLLOW UP: 1 Year Follow-up Recommend return to annual screening mammography.
== END 2023-12-01 14:12 | disposition home or self-care (01) ==
LOC: RAD 14:11
PROVIDERS: PCP Nurse Practitioner Family; Visit Provider Nurse Practitioner Family
DX: R92.8 Other abnormal and inconclusive findings on diagnostic imaging of breast (principal)
CPT/HCPCS: 77061; G0279

== ENCOUNTER 2024-01-16 12:37 | Outpatient (CLI) | payer MEDICARE, SELFPAY ==
--- NOTE | 2024-01-16 13:00 | CT_ITS ---
WS: [id number] LDCT LUNG CANCER SCREENING TECHNIQUE: Noncontrast CT of the chest with coronal and sagittal reformatted images. CLINICAL INFORMATION: F17.210 - Nicotine dependence, cigarettes, uncomplicated COMPARISON: CT chest 01/14/[address] 10/20/2022 DLP: 79.09 mGy.cm DIvol: Mean CTDIvol: 1.70 (mGy) All CT scans at [facility] use at least one of these dose optimization techniques: automat ed exposure control; mA and/or kV adjustment per patient size (includes targeted exams where dose is matched to clinical indication); or iterative reconstruction. FINDINGS: RIGHT lower lobe cavitary nodule is stable compared to previous measuring 7.5 mm. This was previousl y noted to be FDG negative. Small 4 mm subpleural nodule LEFT lower lobe is stable. Moderate thoracic kyphosis. Moderate spondylitic changes thoracic spine with disc base narrowing wors e in the midthoracic spine. Normal caliber thoracic aorta. Aortic calcification. Coronary calcificati on. No mediastinal or hilar lymphadenopathy. No axillary lymphadenopathy. Cholelithiasis. Adrenal glands are normal. Tiny esophageal hiatal hernia. IMPRESSION: CT/CT lung screening [id number] LUNG-RADS: 2-Benign Appearance or Behavior FOLLOW UP: 12 Month: Continue annual screening with LDCT
== END 2024-01-16 12:38 | disposition home or self-care (01) ==
LOC: RAD 12:38
PROVIDERS: PCP Nurse Practitioner Family; Visit Provider Internal Medicine Pulmonary Disease
DX: F17.210 Nicotine dependence, cigarettes, uncomplicated (principal); Z12.2 Encounter for screening for malignant neoplasm of respiratory organs
CPT/HCPCS: 71271

== ENCOUNTER → 2024-03-14 09:11 | Outpatient (BNVA) | payer MEDICARE, SELFPAY | PROVIDERS: PCP Nurse Practitioner Family; Visit Provider Nurse Practitioner Family | DX: M85.80 Other specified disorders of bone density and structure, unspecified site (principal); I10 Essential (primary) hypertension; E78.5 Hyperlipidemia, unspecified; J43.9 Emphysema, unspecified | CPT/HCPCS: 80053; 80061; 84443; 85025 ==

== ENCOUNTER → 2024-05-01 09:52 | Outpatient (BNVA) | payer MEDICARE, SELFPAY | PROVIDERS: PCP Nurse Practitioner Family; Visit Provider Nurse Practitioner Family | DX: R79.89 Other specified abnormal findings of blood chemistry (principal) | CPT/HCPCS: 84443 ==

== ENCOUNTER 2024-05-16 09:23 | Day surgery (SDC) | payer MEDICARE, SELFPAY ==
[2024-05-16 09:36] VITALS: BP 146/53; PULSE 74; RESP 18; TEMP 36.5; O2SAT 94
[2024-05-16] MEDS: sodium chloride 0.9% 1,000 ML 30 ML IV (09:46)
--- NOTE | 2024-05-16 09:52 | ANES.PREANE2 ---
Pre-Anesthetic Assessment Height/Weight: Height 1.68 m Weight 82.1 kg Temp Pulse Resp BP Pulse Ox O2 Del Method 97.7 F 74 18 146/53 94 Room Air 05/16/24 09:36 05/16/24 09:36 05/16/24 09:36 05/16/24 09:36 05/16/24 09:36 05/16/24 09:36 Operation Date: 05/16/24 10:30 Proposed Procedures p [id number] colon G0105 screen colon H risk D12.6,K92.1(Not Applicable) - Blair Guerrero DO Familial anesthetic complications: none Was Beta Lacey taken within 24 hours: N/A Was Clonidine taken within 24 hours: N/A Last intake: Intake Last Liquid Date 05/15/24 Last Liquid Time 20:00 Last Solid Date 05/14/24 Last Solid Time 18:00 Social Tobacco (1ppd) and No alcohol smoked this AM- increased reactive airway risk discussed. Exam alert and oriented x 3 Airway Submandibular: within normal limits Cervical ROM: within normal limits Mallampati: Class I Dentition: false Pulmonary Asthma and Chronic Obstructive Pulmonary Disease (emphysema, used inhaler this AM) CV/HEM Hypertension abdominal aneurysm repaired 2-3 years ago. 1 year check up unremarkable None reported Hepatic None reported GI None reported Metabolic Hyperlipidemia [facility] [place] reported Neuropsych None reported Anesthetic Plan ASA status: 3 Anesthesia: Anesthesia Evaluation, General and MAC Risk of > 500 ml blood loss (7ml/kg in children): No Medications/Allergies Home Medications Medication Instructions Recorded Confirmed Last Taken Type aspirin 81 mg tablet,delayed 81 mg PO QAM 09/13/23 05/15/24 05/12/24 History release (Adult Low Dose Aspirin) albuterol sulfate 90 mcg/actuation 1 inh inhalation QID PRN shortness 03/14/24 05/15/24 05/12/24 Rx aerosol inhaler (Ventolin HFA) of breath or wheezing #8.5 grams atorvastatin 10 mg tablet 10 mg PO QAM #30 tabs 03/14/24 05/15/24 05/15/24 Rx lisinopril 10 mg tablet 10 mg PO QAM #30 tabs 03/14/24 05/15/24 05/15/24 Rx umeclidinium 62.5 mcg/actuation 1 inh inhalation DAILY #30 ea 0605/15/24 05/16/24 Rx blister powder for inhalation (Incruse Ellipta) calcium citrate 315 mg 2 tab PO DAILY 05/15/24 05/15/24 05/15/24 History calcium-vitamin D3 6.25 mcg (250 unit) tablet (Citracal + Vitamin D Maximum) Allergies Allergy/AdvReac Type Severity Reaction Status Date / Time No Known Allergies Allergy Verified 05/16/24 09:32 Current Medications Generic Name Dose Route Start Last Admin Trade Name Heather PRN Reason Stop Dose Admin Sodium Chloride 1,000 mls @ 30 mls/hr 05/16/24 09:45 05/16/24 09:46 Sodium Chloride 0.9% IV 05/17/24 09:44 30 mls/hr .Q24H GLEN Administration PFSH Anesthesia Medical History Tubular adenoma of colon No pertinent past medical history Surgical History Hx of colonoscopy 10/2022 Hx of appendectomy Social History Smoking and tobacco/nicotine status: current every day tobacco/nicotine user (1ppd) cigarettes Packs smoked per day: 1 Years cigarettes smoked: 57 [ Other cigarette details: started age 10] Second hand smoke exposure: No Alcohol intake: never Substance/Drug Use: never Adopted: No Caregiver/support person: No Lives independently: Yes Household members: spouse Housing: House Marital status: Number of children: 4 Highest education level completed: GED or Equivalent service: No Current occupational status: retired Data Anesthesia Cardiac Studies: No Data to Display
--- NOTE | 2024-05-16 10:20 | PM.HP ---
Providers/Chief Complaint Primary Care Provider: ILDEFONSO Roland Chief Complaint: K92.1 History of Present Illness Lola Matta is a 69 year old female Review of Systems General: Reports: 10 or more systems reviewed and unremarkable except in HPI and below Medications/Allergies Home Medications Medication Instructions Recorded Confirmed Last Taken Type aspirin 81 mg tablet,delayed 81 mg PO QAM 09/13/23 05/15/24 05/12/24 History release (Adult Low Dose Aspirin) albuterol sulfate 90 mcg/actuation 1 inh inhalation QID PRN shortness 03/14/24 05/15/24 05/12/24 Rx aerosol inhaler (Ventolin HFA) of breath or wheezing #8.5 grams atorvastatin 10 mg tablet 10 mg PO QAM #30 tabs 03/14/24 05/15/24 05/15/24 Rx lisinopril 10 mg tablet 10 mg PO QAM #30 tabs 03/14/24 05/15/24 05/15/24 Rx umeclidinium 62.5 mcg/actuation 1 inh inhalation DAILY #30 ea 03/14/24 05/15/24 05/16/24 Rx blister powder for inhalation (Incruse Ellipta) calcium citrate 315 mg 2 tab PO DAILY 05/15/24 05/15/24 05/15/24 History calcium-vitamin D3 6.25 mcg (250 unit) tablet (Citracal + Vitamin D Maximum) Allergies Allergy/AdvReac Type Severity Reaction Status Date / Time No Known Allergies Allergy Verified 05/16/24 09:32 PFSH Acute PFSH: Medical History Tubular adenoma of colon No pertinent past medical history Surgical History Hx of colonoscopy 10/2022 Hx of appendectomy Social History Smoking and tobacco/nicotine status: current every day tobacco/nicotine user (1ppd) cigarettes Packs smoked per day: 1 Years cigarettes smoked: 57 [ Other cigarette details: started age 10] Second hand smoke exposure: No Alcohol intake: never Substance/Drug Use: never Adopted: No Caregiver/support person: No Lives independently: Yes Household members: spouse Housing: House Marital status: Number of children: 4 Highest education level completed: GED or Equivalent service: No Current occupational status: retired Vitals/I&O/Wt Last Vital Signs Temp 97.7 F 05/16/24 09:36 Pulse 74 05/16/24 09:36 Resp 18 05/16/24 09:36 BP 146/53 05/16/24 09:36 Pulse Ox 94 05/16/24 09:36 O2 Del Method Room Air 05/16/24 09:36 Weight last 48 hrs Weight 181 lb A&P Assessment and plan (1) Tubular adenoma of colon: Plan Colonoscopy Attestations Medical Necessity Statement*: Home Coding Level of Care Code Acute Code for Chg Fwd Diagnoses Tubular adenoma of colon D12.6
[2024-05-16 11:08] VITALS: BP 143/67; PULSE 64; RESP 16; TEMP 36.1; O2SAT 100
[2024-05-16 11:21] VITALS: BP 132/61; PULSE 59; RESP 18; O2SAT 92
--- NOTE | 2024-05-16 11:27 | ANE.PACU2 ---
Inpatient post-anesthesia follow up: Airway intact: Yes Vital signs: Temperature 97.0 F Pulse Rate 59 Respiratory Rate 18 Blood Pressure 132/61 Pulse Oximetry 92 Oxygen Delivery Me thod Room Air Oxygen Flow Rate Fraction of Inspir ed Oxygen Hydration adequate: Yes Nausea and vomiting: No Pain level: 1 Mental status: Baseline
[2024-05-16 11:31] VITALS: BP 135/74; PULSE 57; RESP 18; O2SAT 92
== END 2024-05-16 11:59 | disposition home or self-care (01) ==
PROVIDERS: PCP Nurse Practitioner Family; Visit Provider Surgery
PROC: 0DJD8ZZ Inspection of Lower Intestinal Tract, Via Natural or Artificial Opening Endoscopic (ICD-10-PCS; CPT 45378; principal; 2024-05-16 10:30)
DX: K92.1 Melena (principal); K64.8 Other hemorrhoids; K57.30 Diverticulosis of large intestine without perforation or abscess without bleeding; K56.699 Other intestinal obstruction unspecified as to partial versus complete obstruction; D12.3 Benign neoplasm of transverse colon; Z79.82 Long term (current) use of aspirin; F17.210 Nicotine dependence, cigarettes, uncomplicated; J44.9 Chronic obstructive pulmonary disease, unspecified; I10 Essential (primary) hypertension; E78.5 Hyperlipidemia, unspecified
CPT/HCPCS: 45385; 88305; J2704; J3490; J7030

== ENCOUNTER → 2024-05-28 14:04 | Outpatient (BNVA) | payer MEDICARE, SELFPAY | PROVIDERS: PCP Nurse Practitioner Family; Visit Provider Surgery | DX: Z09 Encounter for follow-up examination after completed treatment for conditions other than malignant neoplasm (principal); D37.4 Neoplasm of uncertain behavior of colon | CPT/HCPCS: 99214 ==

== ENCOUNTER 2024-07-11 10:37 | Emergency (ER) | payer MEDICARE, SELFPAY ==
[2024-07-11 10:38] VITALS: BP 147/92; PULSE 93; RESP 17; TEMP 36.7; O2SAT 92; BMI 29.0
--- NOTE | 2024-07-11 10:50 | W.ED.EPISTAX ---
HPI - Epistaxis General: Chief complaint: Epistaxis Stated complaint: Nose Bleed Time Seen by Provider: 07/11/24 10:38 History of Present Illness: 69-year-old female who presents to the emergency room by ambulance from a clinic in [place] with a nosebleed. She says she has these sometimes and usually stop. This 1 would not stop and they could not get it stopped in clinic so they called an ambulance. By the time she arrives here bleeding has resolved. She did have some nausea and vomiting from swallowing blood. She has received some Zofran and that improved as well. Related Data Home Medications Medication Instructions Recorded Confirmed aspirin 81 mg tablet,delayed 81 mg PO QAM 09/13/23 07/11/24 release (Adult Low Dose Aspirin) calcium citrate 315 mg 2 tab PO DAILY 05/15/24 07/11/24 calcium-vitamin D3 6.25 mcg (250 unit) tablet (Citracal + Vitamin D Maximum) Previous Rx's Medication Instructions Recorded albuterol sulfate 90 mcg/actuation 1 inh inhalation QID PRN shortness 03/14/24 aerosol inhaler (Ventolin HFA) of breath or wheezing #8.5 grams atorvastatin 10 mg tablet 10 mg PO QAM #30 tabs 03/14/24 lisinopril 10 mg tablet 10 mg PO QAM #30 tabs 03/14/24 umeclidinium 62.5 mcg/actuation 1 inh inhalation DAILY #30 ea 03/14/24 blister powder for inhalation (Incruse Ellipta) Allergies Allergy/AdvReac Type Severity Reaction Status Date / Time No Known Allergies Allergy Verified 07/11/24 10:51 PFS ED PFSH: Medical History Tubular adenoma of colon No pertinent past medical history Surgical History Hx of colonoscopy 10/2022 Hx of appendectomy Social History Smoking and tobacco/nicotine status: current every day tobacco/nicotine user (no plan to stop) cigarettes Packs smoked per day: 1 Years cigarettes smoked: 57 [ Other cigarette details: started age 10] Second hand smoke exposure: No Alcohol intake: never Substance/Drug Use: never Adopted: No Caregiver/support person: No Lives independently: Yes Household members: spouse Housing: House Marital status: Number of children: 4 Highest education level completed: GED or Equivalent service: No Current occupational status: retired Physical Exam Narrative: EXAM NARRATIVE: General: Alert, no acute distress. Skin: Warm, dry. Head: Normocephalic, atraumatic. Neck: Supple, trachea midline. Eye: Extraocular movements are intact. Ears, nose, mouth and throat: mucosa moist. Some dried blood in the right nare. Otherwise bleeding has stopped. No active bleeding. Cardiovascular: Regular, Normal peripheral perfusion. Respiratory: Lungs are clear to auscultation, respirations are non-labored, breath sounds are equal, Symmetrical chest wall expansion. Gastrointestinal: Soft, Nontender, Non distended Musculoskeletal: Normal ROM, no deformity. Neurological: Alert and oriented, No focal neurological deficit observed. Psychiatric: Cooperative, appropriate mood & affect. Course Vital Signs: Vital signs: Vital Signs Temperature 98.0 F 07/11/24 10:38 Pulse Rate 89 07/11/24 11:16 Respiratory Rate 22 H 07/11/24 10:58 Blood Pressure 108/80 07/11/24 11:16 Pulse Oximetry 90 07/11/24 11:16 Oxygen Delivery Me thod Room Air 07/11/24 11:16 MDM - Epistaxis Medical Decision Making Medical decision making: Differential diagnosis including but not limited to and based on the above HPI, review of systems and physical exam: Bleeding is basically stopped. Lab work and coags to evaluate for anemia Orders placed to evaluate differential diagnosis based on the above differential, HPI and physical exam Lab Review: Laboratory results were reviewed and interpreted by myself the emergency room physician. Lab work is normal. No leukocytosis. No anemia. No renal failure. Coags are normal. I reviewed the patient's medical record. Reexamination: Bleeding has remained stopped. No increased work of breathing. No altered mental status. Patient says she feels better. Assessment and plan: Epistaxis ?Afrin in the emergency room. The patient has resolved bleeding. - Discharged home - Discussed plan with patient. Answered any questions. - Evaluation and treatment of this problem were appropriate in the emergency setting. Lab Data 07/11/24 11:06 07/11/24 11:06 Laboratory Results WBC 7.65 10^3/uL (3.29-11.43) 07/11/24 11:06 RBC 5.24 10^6/uL (3.85-5.65) 07/11/24 11:06 Hgb 15.50 g/dL (11.27-16.99) 07/11/24 11:06 Hct 49.2 % (36-47) H 07/11/24 11:06 MCV 93.9 fl (85-98) 07/11/24 11:06 MCH 29.6 pg (27-33) 07/11/24 11:06 MCHC 31.5 g/dL (30-55) 07/11/24 11:06 RDW 14.6 % (12.1-15.1) 07/11/24 11:06 Plt Count 167 10^3/cmm (157-399) 07/11/24 11:06 MPV 11.6 fL (7.4-10.4) H 07/11/24 11:06 Neut % (Auto) 72.1 % 07/11/24 11:06 Lymph % (Auto) 16.6 % 07/11/24 11:06 [place] % (Auto) 8.6 % 07/11/24 11:06 Eos % (Auto) 2.0 % 07/11/24 11:06 Baso % (Auto) 0.3 % 07/11/24 11:06 Neut # (Auto) 5.52 10^3/uL (1.8-7.7) 07/11/24 11:06 Lymph # (Auto) 1.3 10^3/uL (0.8-4.8) 07/11/24 11:06 [place] # (Auto) 0.7 10^3/uL (0.2-0.9) 07/11/24 11:06 Eos # (Auto) 0.2 10^3/uL (0.0-0.8) 07/11/24 11:06 Baso # (Auto) 0.0 10^3/uL (0.0-0.1) 07/11/24 11:06 Nucleated RBC % (auto) 0 % 07/11/24 11:06 Nucleated RBCs # 0.0 /100WBC 07/11/24 11:06 PT 12.90 SECONDS (12.1-14.9) 07/11/24 11:06 INR 0.94 (0.8-1.2) 07/11/24 11:06 APTT 27.0 SECONDS (23.9-36.7) 07/11/24 11:06 Sodium 136 mmol/L (136-145) 07/11/24 11:06 Potassium 4.7 mmol/L (3.5-5.1) 07/11/24 11:06 Chloride 105 mmol/L (98-107) 07/11/24 11:06 Carbon Dioxide 24 mmol/L (22-29) 07/11/24 11:06 Anion Gap 11.7 (5-19) 07/11/24 11:06 BUN 17 mg/dL (8-23) 07/11/24 11:06 Creatinine 0.8 mg/dL (0.5-0.9) 07/11/24 11:06 GFR Calculation 71.3 mL/min (90-130) L 07/11/24 11:06 Glucose 121 mg/dL (65-115) H 07/11/24 11:06 Calculated Osmolality 285 mOsm/kg (285-295) 07/11/24 11:06 Calcium 9.3 mg/dL (8.5-10.5) 07/11/24 11:06 No radiology studies performed this visit Discharge Plan Discharge Patient Disposition: Home Clinical Impression: Epistaxis Condition: Stable Prescriptions: No Action aspirin [Adult Low Dose Aspirin] 81 mg tablet,delayed release (DR/EC) 81 mg PO QAM lisinopril 10 mg tablet 10 mg PO QAM Qty: 30 5RF atorvastatin 10 mg tablet 10 mg PO QAM Qty: 30 5RF Incruse Ellipta 62.5 mcg/actuation blister with device 1 inh inhalation DAILY Qty: 30 5RF albuterol sulfate [Ventolin HFA] 90 mcg/actuation HFA aerosol inhaler 1 inh inhalation QID PRN (Reason: shortness of breath or wheezing) Qty: 8.5 3RF calcium citrate-vitamin D3 [Citracal + D Maximum] 315 mg-6.25 mcg (250 unit) tablet 2 tab PO DAILY Discharge Orders: Discharge ED (Routine); Ordered 07/11/24 Ordered By: Gianna Avery Referrals: Mansi Reese FNP-C [Primary Care Provider] - Discharge Diet: Usual diet Discharge Activity: Increase activity as tolerated Patient Instructions: Nosebleed (ED) Activity Restrictions/Additional Instructions: Thank you for choosing [facility] for your healthcare needs today. Please realize this is an emergency room and that we are providing you with a medical screening exam and this may not be complete and all inclusive of all the testing and or work up that you may need to determine your ailment or severity of your illness. You have been screened and evaluated and felt safe for discharge. Health conditions do change or evolve sometimes and as such it is important that you follow up with your Primary Doctor to be re checked, 3-5 days is a general good time frame for follow up. You are always welcome to return to the ED for re assessment if your symptoms are worsening or you have new concerns Coding Level of Care Code ED [employer] for Angélica Hong
[2024-07-11 10:58] VITALS: BP 116/85; PULSE 88; RESP 22; O2SAT 91
[2024-07-11 11:04] VITALS: BP 108/80
[2024-07-11] MEDS: oxymetazoline 0.05% Nasal Spray 15 mL 4 SPRAY NOSTRIL-R (11:06)
[2024-07-11 11:11] LABS: Basophils % 0.3 %; Eosinophils # 0.2 10^3/uL (0.0-0.8); Hematocrit 49.2 % (36-47); Lymphocytes # 1.3 10^3/uL (0.8-4.8); Lymphocytes % 16.6 %; Mean Corpuscular HGB Conc 31.5 g/dL (30-55); Mean Corpuscular Hemoglobin 29.6 pg (27-33); Mean Corpuscular Volume 93.9 fl (85-98); Mean Platelet Volume 11.6 fL (7.4-10.4); Monocytes # 0.7 10^3/uL (0.2-0.9); Monocytes % 8.6 %; Neutrophils # 5.52 10^3/uL (1.8-7.7); Neutrophils % 72.1 %; Nucleated Red Blood Cells % 0 %; Platelet Count 167 10^3/cmm (157-399); Red Blood Count 5.24 10^6/uL (3.85-5.65); Red Cell Distribution Width 14.6 % (12.1-15.1); White Blood Count 7.65 10^3/uL (3.29-11.43)
[2024-07-11 11:16] VITALS: BP 108/80; PULSE 89; O2SAT 90
[2024-07-11 11:28] LABS: INR 0.94 (0.8-1.2)
[2024-07-11 11:34] LABS: Anion Gap 11.7 (5-19); Blood Urea Nitrogen 17 mg/dL (8-23); Calcium 9.3 mg/dL (8.5-10.5); Carbon Dioxide 24 mmol/L (22-29); Chloride 105 mmol/L (98-107); Creatinine Clr Calc Pharmacy 72.5037; Glomerular Filtration Rate 71.3 mL/min (90-130); Glucose 121 mg/dL (65-115); Osmolality Calculated 285 mOsm/kg (285-295); Potassium 4.7 mmol/L (3.5-5.1); Sodium 136 mmol/L (136-145)
--- NOTE | 2024-07-11 12:12 | PC.NURSE ---
Pt BP manual 74/50. Pt awake, alert, report some dizziness, Dr. Avery notified. 1L NS Bolus started.
[2024-07-11 12:30] VITALS: BP 108/71; PULSE 74; O2SAT 91
[2024-07-11] MEDS: sodium chloride 0.9% 1,000 ML 999 ML IV (12:41)
[2024-07-11 12:58] VITALS: BP 112/79; PULSE 88; O2SAT 94
== END 2024-07-11 13:00 | disposition home or self-care (01) ==
PROVIDERS: Emergency Provider Emergency Medicine; PCP Nurse Practitioner Family
DX: R04.0 Epistaxis (principal); Z79.82 Long term (current) use of aspirin; F17.210 Nicotine dependence, cigarettes, uncomplicated
CPT/HCPCS: 36415; 80048; 85025; 85610; 85730; 99284; J7030

== ENCOUNTER → 2024-09-12 12:15 | Outpatient (BNVA) | payer MEDICARE, SELFPAY | PROVIDERS: PCP Nurse Practitioner Family; Visit Provider Nurse Practitioner Family | DX: I10 Essential (primary) hypertension (principal) | CPT/HCPCS: 80053; 80061; 84443; 85025 ==

== ENCOUNTER 2024-11-28 13:39 | Outpatient (CLI) | payer MEDICARE, SELFPAY ==
--- NOTE | 2024-11-28 13:40 | MM_ITS ---
WS: [id number] BILATERAL 3D TOMOSYNTHESIS DIGITAL SCREENING MAMMOGRAPHY WITH CAD CLINICAL INFORMATION: SCREENING HISTORY: Screening mammogram. No current complaints. COMPARISON: 2023 TECHNIQUE: Bilateral CC and MLO views. FINDINGS: Scattered fibroglandular densities bilaterally. No suspicious focal mass, asymmetry, calcifications, or architectural distortion. No evidence of malignancy. MM/MM scr BI tomosynthesis [id number] IMPRESSION: DENSITY: There are scattered areas of fibroglandular density. BI-RADS: 1 - Negative. FOLLOW UP: 1 Year Follow-up Recommend return to annual screening mammography.
== END 2024-11-28 13:40 | disposition home or self-care (01) ==
LOC: MOBLMAM 13:41
PROVIDERS: PCP Nurse Practitioner Family; Visit Provider Nurse Practitioner Family
DX: Z12.31 Encounter for screening mammogram for malignant neoplasm of breast (principal); R92.323 Mammographic fibroglandular density, bilateral breasts
CPT/HCPCS: 77063; 77067

== ENCOUNTER → 2025-09-10 11:50 | Outpatient (BNVA) | payer MEDICARE, SELFPAY | PROVIDERS: PCP Nurse Practitioner Family; Visit Provider Nurse Practitioner Family | DX: E78.5 Hyperlipidemia, unspecified (principal); I10 Essential (primary) hypertension; Z12.2 Encounter for screening for malignant neoplasm of respiratory organs | CPT/HCPCS: 80053; 80061; 83036; 84443; 85025 ==

== ENCOUNTER → 2025-09-12 10:15 | Outpatient (BNVA) | payer MEDICARE, SELFPAY | PROVIDERS: PCP Nurse Practitioner Family; Visit Provider Student in an Organized Health Care Education/Training Program | DX: Z12.11 Encounter for screening for malignant neoplasm of colon (principal) | CPT/HCPCS: 99024; 99204 ==

== ENCOUNTER → 2025-09-19 10:14 | Outpatient (BNVA) | payer MEDICARE, SELFPAY | PROVIDERS: PCP Nurse Practitioner Family; Referring Provider Nurse Practitioner Family; Visit Provider Internal Medicine | DX: J43.9 Emphysema, unspecified (principal); R91.1 Solitary pulmonary nodule; F17.210 Nicotine dependence, cigarettes, uncomplicated | CPT/HCPCS: 99214; Q3014 ==